=== PATIENT | female | born 1990 | race Caucasian/White ===

== ENCOUNTER 2018-05-05 13:31 | Emergency (ER) | payer MEDICAID ==
--- NOTE | 2018-05-05 14:51 | ED ---
Throat Pain/Nasal Congestion - HPI Summary HPI Summary: Patient complains of recent broken tooth with subsequent pain and swelling, possible infection. History of multiple dental caries. Denies purulent discharge, fever, cough, sore throat, CP, SOB, N/V/V abdominal pain, change in urine, change in BM. Has appointment with dentist on May 14, states she is concerned tooth is becoming infected before seeing dentist. Medical conditions none. Patient on Suboxone. - History of Current Complaint Chief Complaint: EDDentalPain Time Seen by Provider: 05/05/18 14:40 Hx Obtained From: Patient Onset/Duration: Sudden Onset Severity: Moderate Associated Signs And Symptoms: Positive: Negative Cough: None - Allergies/Home Medications Allergies/Adverse Reactions: Allergies Allergy/AdvReac Type Severity Reaction Status Date / Time Penicillins Allergy Nausea And Verified 05/05/18 13:40 Vomiting PMH/Surg Hx/FS Hx/Imm Hx Endocrine/Hematology History: Denies: Hx Anticoagulant Therapy Respiratory History: Denies: Hx Asthma History: Denies: Hx Dialysis Psychiatric History: Reports: Hx Anxiety, Hx Depression, Hx Substance Abuse - opiates Denies: Hx Attention Deficit Hyperactivity Disorder, Hx Eating Disorder, Hx Bipolar Disorder Infectious Disease History: Yes Infectious Disease History: Denies: Traveled Outside the [place] in Last 30 Days - Family History Known Family History: Positive: Non-Contributory - Social History Alcohol Use: None Substance Use Type: Reports: None Substance Use Comment - Amount & Last Used: Last drank alcohol on January 12. Type: Cigarettes Have You Smoked in the Last Year: No Review of Systems Constitutional: Negative Eyes: Negative Positive: Dental Pain Cardiovascular: Negative Respiratory: Negative Gastrointestinal: Negative Genitourinary: Negative Musculoskeletal: Negative Skin: Negative Neurological: Negative Psychological: Normal All Other Systems Reviewed And Are Negative: Yes Physical Exam - Summary Physical Exam Summary: Swelling and erythema to gums are upper right jaw. Positive deeply broken tooth at rear upper molar. No evidence of apical abscess. Full range of motion of jaw. No oral lesions or other trauma noted. Multiple dental caries. Triage Information Reviewed: Yes Vital Signs On Initial Exam: Initial Vitals Temp Pulse Resp BP Pulse Ox 97.3 F 106 18 150/97 96 05/05/18 13:36 05/05/18 13:36 05/05/18 13:36 05/05/18 13:36 05/05/18 13:36 Vital Signs Reviewed: Yes Appearance: Positive: Well-Appearing Skin: Positive: Warm Head/Face: Positive: Normal Head/Face Inspection Eyes: Positive: Normal ENT: Positive: Normal ENT inspection Dental: Positive: Gross Decay/Caries @, Dental Fracture @. Negative: Abscess @ , Bleeding Neck: Positive: Supple Respiratory/Lung Sounds: Positive: Clear to Auscultation Cardiovascular: Positive: Normal Abdomen Description: Positive: Nontender Musculoskeletal: Positive: Normal Neurological: Positive: Normal Psychiatric: Positive: Normal AVPU Assessment: Alert - Deepika Coma Scale Best Eye Response: 4 - Spontaneous Best Motor Response: 6 - Obeys Commands Best Verbal Response: 5 - Oriented Coma Scale Total: 15 Diagnostics - Vital Signs Vital Signs Temp Pulse Resp BP Pulse Ox 05/05/18 13:36 97.3 F 106 18 150/97 96 - Laboratory Lab Statement: Any lab studies that have been ordered have been reviewed, and results considered in the medical decision making process. EENT Course/Dx - Course Course Of Treatment: Patient complains of recent broken tooth with subsequent pain and swelling, possible infection. History of multiple dental caries. Denies purulent discharge, fever, cough, sore throat, CP, SOB, N/V/V abdominal pain, change in urine, change in BM. Has appointment with dentist on May 14 , states she is concerned tooth is becoming infected before seeing dentist. Medical conditions none. Patient on Suboxone. Physical exam:Swelling and erythema to gums are upper right jaw. Positive deeply broken tooth at rear upper molar. No evidence of apical abscess. Full range of motion of jaw. No oral lesions or other trauma noted. Multiple dental caries. No evidence of abscess. Rx clindamycin. Appointment May with dentist. - Diagnoses Provider Diagnoses: Pain in upper jaw Discharge - Sign-Out/Discharge Documenting (check all that apply): Patient Departure - Discharge Plan Condition: Stable Disposition: HOME Prescriptions: Clindamycin HCl 300 mg PO TID 7 Days #21 capsule Patient Education Materials: Acute Dental Trauma (ED) Referrals: No Primary Care Phys,NOPCP [Primary Care Provider] - Additional Instructions: Follow-up with your dentist. Return to the ED for any new or worsening symptoms - Billing Disposition and Condition Condition: STABLE Disposition: Home
[2018-05-05 14:58] VITALS: BP 119/65
== END 2018-05-05 14:57 | disposition home or self-care (01) ==
LOC: ED 13:31
DX: R68.84 Jaw pain (principal); K02.9 Dental caries, unspecified; S02.5XXA Fracture of tooth (traumatic), initial encounter for closed fracture; X58.XXXA Exposure to other specified factors, initial encounter; Y92.9 Unspecified place or not applicable
CPT/HCPCS: 99282